=== PATIENT | male | born 1955 | race Caucasian/White ===

== ENCOUNTER 2019-05-23 09:14 | Outpatient (CLI) | payer OTHER ==
[2019-05-23 10:31] LABS: #Eosinphils 0.2 thou/uL (0.0-0.7); #Lymphocytes 1.9 thou/uL (1.20-3.40); #Monocytes 1.2 thou/uL (0.11-0.59); #Neutrophils 6.6 thou/uL (1.40-6.50); %Basophils 0.4 % (0.0-1.0); %Eosinophils 1.7 % (0.0-10.0); %Lymphocytes 19.1 % (21.0-51.0); %Monocytes 11.9 % (0.0-10.0); Mean Corpuscular HGB CONC 34.3 g/dL (32.0-36.0); Mean Corpuscular Volume 84.4 fL (78.0-98.0); Mean Platelet Volume 7.5 fL (7.4-10.4); Platelet Count 184 thou/uL (130-400); RBC Distribution Width 13.1 % (11.5-14.5); Red Blood Cell (RBC) Count 4.16 mill/uL (4.70-6.10); White Blood Cell (WBC) Count 9.8 thou/uL (4.8-10.8)
[2019-05-23 10:57] LABS: ALT (SGPT) 33 U/L (8-55); AST (SGOT) 26 U/L (5-34); Albumin 4.4 g/dL (3.4-4.8); Alkaline Phosphatase 50 U/L (40-110); Anion Gap 13 mmol/L (10-20); BUN (Urea Nitrogen) 28 mg/dL (8.4-25.7); Bilirubin, Total 0.6 mg/dL (0.2-1.2); Calc. Creatinine Clearance 0 mL/min (70-130); Calcium 9.3 mg/dL (7.8-10.44); Carbon Dioxide 23 mmol/L (23-31); Chloride 103 mmol/L (98-107); Estimated GFR-MDRD 54; Globulin 3.1 g/dL (2.4-3.5); Glucose 98 mg/dL (80-115); Potassium 4.3 mmol/L (3.5-5.1); Protein, Total 7.5 g/dL (5.8-8.1); Sodium 135 mmol/L (136-145)
== END 2019-05-23 09:15 | disposition home or self-care (01) ==
LOC: LABBT 09:14
PROVIDERS: ATTEND Surgery
DX: Z01.818 Encounter for other preprocedural examination (principal); K64.8 Other hemorrhoids
CPT/HCPCS: 80053; 85025; 93005; 93010

== ENCOUNTER 2019-05-29 05:42 | Day surgery (SDC) | payer OTHER ==
[2019-05-23 09:42] VITALS: BMI 43.2
[2019-05-29] MEDS ORDERED: cefOXitin 2 GM VIAL ONE (06:07)
[2019-05-29] MEDS ORDERED: Sodium Chloride 0.9% 100 ML ONE (06:08)
[2019-05-29] MEDS ORDERED: Bacitracin Zinc Ointment 30 gm TUBE ONE (06:46)
[2019-05-29] MEDS ORDERED: Bupivacaine/Epinephrine 0.25% 30 ML VIAL ONE (06:46)
[2019-05-29] MEDS ORDERED: Fentanyl 100 MCG/2 ML VIAL ONE ×2 (06:59→08:51)
[2019-05-29] MEDS ORDERED: Finasteride 5 MG TAB PO SCH (11:45)
[2019-05-29] MEDS ORDERED: Furosemide 40 MG TAB PO SCH (11:45)
--- NOTE | 2019-05-29 14:26 | HP ---
CHIEF COMPLAINT: Hemorrhoidal prolapse. HISTORY OF PRESENT ILLNESS: The patient is a 63-year-old male, who has had a several year history of increasing prolapsing of hemorrhoids. He is having difficulty with hygiene with a lot of itching and burning. No bleeding. Colonoscopy 18 months ago. No family history of colon cancer. Denies constipation. He has tried fiber, Witch Camila, Proctofoam without improvement. PAST MEDICAL HISTORY: Hypertension, hyperlipidemia, kidney stones, and diabetes. PAST SURGICAL HISTORY: Rotator cuff surgery, ankle surgery, appendectomy, had a transposition of the ulnar nerve, had dilatation of esophagus, lithotripsy. He has had a left knee replacement and elbow surgery. MEDICATIONS: Include: 1. Aspirin. 2. Gabapentin. 3. Lasix. 4. Carvedilol. 5. Spironolactone. 6. Lisinopril. 7. Proctofoam. 8. Doxazosin. 9. Metformin. 10. Januvia. 11. Trulicity. 12. Glimepiride. 13. Farxiga. 14. Rosuvastatin. ALLERGIES: NO KNOWN DRUG ALLERGIES. SOCIAL HISTORY: No tobacco. No alcohol. He is . Works in IT. PHYSICAL EXAMINATION: VITAL SIGNS: Height 68, weight 292, and body mass index 44.4. GENERAL: He is morbidly obese male, in no apparent distress. HEENT: Unremarkable. LUNGS: Clear. HEART: Regular rate and rhythm. ABDOMEN: Soft, nondistended, and tender. No masses or hernias. EXTREMITIES: Good pulses. No pedal edema. RECTAL: He has grade 3 combined hemorrhoids. No palpable masses. ASSESSMENT: Prolapsing hemorrhoids, symptomatic. PLAN: PPH stapled hemorrhoidectomy. CONSENT: I have discussed planned procedure as well as risk of bleeding, infection, injury to sphincter muscle with incontinence. He understands and gives informed consent. Job ID: [id number]
--- NOTE | 2019-05-29 15:32 | OP ---
DATE OF PROCEDURE: 05/29/2019 PREOPERATIVE DIAGNOSES: Grade 3 symptomatic hernia and hemorrhoids. PROCEDURE PERFORMED: Procedure for prolapse and hemorrhoids, stapled hemorrhoidectomy. INDICATIONS: A 63-year-old male, who has prolapsing hemorrhoids causing difficulty with hygiene and pruritus ani. He has tried multiple nonsurgical remedies without improvement. FINDINGS: Grade 3 hemorrhoids. DESCRIPTION OF PROCEDURE: After informed consent was obtained, the patient was taken to the operating room and given general endotracheal anesthesia. He was placed in the prone ha-knife position. His buttock cheeks were spread apart with tape. The skin was prepped and draped in usual fashion. Local anesthesia infiltrated subcutaneously and deep with 0.5% Marcaine as a 4-quadrant anal block. The anal retractor was inserted maximally and sutured in place with interrupted 0 silk suture. The pursestring guide was then inserted and a pursestring of 2-0 Prolene was placed circumferentially in the rectal mucosa just below the dentate line. The stapler was opened maximally, the anvil advance beyond the pursestring. The strings were brought through the channels on the stapler utilizing a shanthi hook. It was tied as a knot and the knot was held tight to secure the pursestring around the shaft of the stapler. Then, the stapler was closed, it was fired and held for 30 seconds, then released for 30 seconds and then removed. The specimen inspected, there were no muscle fibers. The staple line was inspected, there was an area anterior that required a [id number] with 3-0 chromic hemostasis. The staple line was irrigated. Irrigation fluid removed. Gelfoam impregnated with bacitracin was inserted within the anal canal. A sterile bandage applied. The patient tolerated the procedure well, transferred to Recovery in good condition. Sponge and needle count verified correct x2. Job ID: [id number]
== END 2019-05-29 13:20 | disposition home or self-care (01) ==
LOC: SDC 05:42
PROVIDERS: ATTEND Surgery
PROC: 06BY3ZC Excision of Hemorrhoidal Plexus, Percutaneous Approach (ICD-10-PCS; principal; 2019-05-29)
DX: K64.8 Other hemorrhoids (principal); L29.0 Pruritus ani; I10 Essential (primary) hypertension; E11.9 Type 2 diabetes mellitus without complications; E78.5 Hyperlipidemia, unspecified; Z79.82 Long term (current) use of aspirin; Z79.84 Long term (current) use of oral hypoglycemic drugs; Z79.899 Other long term (current) drug therapy
CPT/HCPCS: 36416; 88304; J0694; J3010; J3490

== ENCOUNTER 2022-10-12 08:46 | Outpatient (CLI) | payer OTHER | END 2022-10-12 08:47 | disposition home or self-care (01) | LOC: DTY/OP 08:46 | PROVIDERS: ATTEND Surgery | DX: E66.01 Morbid (severe) obesity due to excess calories (principal) | CPT/HCPCS: 97802 ==